=== PATIENT | female | born 1945 | race Two or more races ===

== ENCOUNTER 2018-11-19 23:49 | Emergency (ER) | payer OTHER ==
[~2018-11-19 23:49] MED LIST: CODE BLUE RESUSCITATION 1 EA MISC ONE
--- NOTE | 2018-11-19 23:56 | EDPHY ---
H & P Time Seen by Provider: 11/19/18 23:52 HPI/ROS: Chief Complaint: Cardiac arrest HPI: 73-year-old woman with known diabetes had a witnessed collapse 40 min prior to arrival. On EMS arrival the patient was pulseless and apneic. They initiated CPR. An IO was placed. She was initially in asystole. She received 7 rounds of epinephrine through the IO, 1 amp of bicarb and Narcan. Initial blood sugar was in the 400s. Patient's rhythm transferred to a but there was never return of circulation. Patient received the 1st epinephrine 25 min ago. No further history available. ROS: Unavailable secondary to the patient being unresponsive PMH: Type 2 diabetes Social History: Unknown Family History: Unknown Physical Exam: Gen: Unresponsive, intubated HEENT: [ Eyes: Pupils 6 mm and unreactive bilaterally Mouth: Endotracheal tube in place Neck:, no JVD Chest: Breath sounds equal bilaterally Heart: No heart tones audible Abd: Soft, nondistended Ext: no edema Skin: no rash Neuro: Unresponsive, GCS 3 T Constitutional: Initial Vital Signs Heart Rate 0 L 11/19/18 23:45 Respiratory Rate 0 L 11/19/18 23:45 O2 Delivery Mode Bag Valve Mask Medical Decision Making Procedures: Procedure: Limited transthoracic echocardiogram. A limited transthoracic echocardiogram was performed and interpreted by myself for cardiac arrest. Limited transthoracic echocardiogram: The pericardium was visualized and found to be negative for pericardial fluid. Cardiac activity was absent. The study was negative for pericardial effusion. The study demonstrated absence of cardiac activity. The exam was performed by myself. ED Course/Re-evaluation: On arrival the patient is intubated, pulseless and apneic. CPR was continued. 2 min pulse check was conducted and the patient had no pulses. CPR was re- initiated and another epinephrine was administered to the IO. Another 2 min check was performed. The patient remained pulseless and apneic. Bedside ultrasound performed by me showed no cardiac activity. Patient was in bradycardic PE a with a rate of 20 on the monitor. At this point the patient had been down for 40 min. 25-30 minutes since the initial epinephrine. Patient received a total of 8 mg of epinephrine, 1 amp of bicarb and no lock sound. Patient did not have return of spontaneous circulations. Patient was pronounced at 11:52 p.m. By me Departure - Departure Disposition: Clinical Impression: Cardiac arrest Referrals: Patient,NotPresent [Primary Care Provider] - As per Instructions
[2018-11-20] MEDS ORDERED: EPINEPHrine 1 MG/10 ML SYR IVP ONE (00:06)
== END 2018-11-20 02:18 | disposition expired ==
DX: I46.9 Cardiac arrest, cause unspecified (principal); E11.9 Type 2 diabetes mellitus without complications
CPT/HCPCS: 96374